=== PATIENT | female | born 1975 | race Caucasian/White ===

== ENCOUNTER 2017-11-15 12:19 | Emergency (ER) | payer OTHER ==
[~2017-11-15] VITALS: Ht 160 cm; Wt 106.0 kg
[2017-11-15 12:20] VITALS: BP 108/75; PULSE 93; RESP 14; TEMP 98.3; O2SAT 98
[2017-11-15] MEDS ORDERED: IBUPROFEN 800 MG TAB PO ONE (13:45)
--- NOTE | 2017-11-15 13:50 | PD ---
HPI Chief Complaint: Injury Time Seen by Provider: 13:19 Travel History International Travel<30 days: No Contact w/Intl Traveler<30days: No Traveled to known affect area: No History of Present Illness HPI 42-year-old female presents to the emergency Department with complaint of right ankle pain and left knee pain after rolling her ankle on an uneven surface today. Denies hitting her head or loss of consciousness. Denies neck pain or back pain. Denies chest pain, shortness of breath, abdominal pain, vomiting. Has not taken any medication or tried any treatments to relieve his symptoms. Ankle pain is right lateral. Knee pain is left anterior. Rates pain 10/10. Aggravated with movement and palpation. No known relieving factors. Has not ambulated since after the fall. Reports feeling some numbness in her right foot , but denies loss of sensation. Primary care provider is Dr. Sotelo. No known allergies. Denies significant past medical history. Has no other medical complaints. No other modifying factors or associated signs and symptoms. PFSH Past Medical History Medical History: Denies Significant Hx ?: Unknown LMP: 10/19/17 Past Surgical History Cholecystectomy: Yes Social History Alcohol Use: Yes (OCC) Tobacco Use: No Substance Use: No Allergies-Medications (Allergen,Severity, Reaction): Coded Allergies: No Known Allergies (Unverified , 11/15/17) Reported Meds & Prescriptions Reported Meds & Active Scripts Active Ibuprofen 800 Mg Tab 800 Mg PO Q6HR PRN [place] (Hydrocodone-Acetaminophen) 5 Mg-325 Mg Tab 1 Tab PO Q4H PRN Review of Systems Except as stated in HPI: all other systems reviewed are Neg Physical Exam Narrative GENERAL: Well-nourished, well-developed female patient, in no acute distress SKIN: Warm and dry. HEAD: Atraumatic. Normocephalic. EYES: Pupils equal and round. No scleral icterus. No injection or drainage. ENT: Mucosa pink and moist. Airway patent. NECK: Trachea midline. CARDIOVASCULAR: Regular rate. RESPIRATORY: No accessory muscle use. GASTROINTESTINAL: Rounded. MUSCULOSKELETAL: Right ankle with point tenderness to the lateral zone with palpation; edema noted to the lateral aspect; no obvious deformity; without erythema, ecchymosis. Right Lower extremity is supple and nontense with 2+ pedal pulse and sensory intact. Left knee with tenderness on palpation to the patellar aspect; without erythema, edema, ecchymosis; full range of motion with flexion and 90 and joint stable with negative drawer test. Left lower Ixodes supple and non-tense 2+ pedal pulse and sensory intact without erythema or edema. No obvious deformities. No clubbing. No cyanosis. No edema. NEUROLOGICAL: Awake and alert. Oriented 3. No obvious cranial nerve deficits. Motor grossly within normal limits. Normal speech. PSYCHIATRIC: Appropriate mood and affect; insight and judgment normal. Data Data Last Documented VS Vital Signs Date Time Temp Pulse Resp B/P (MAP) Pulse Ox O2 Delivery O2 Flow Rate FiO2 11/15/17 12:20 98.3 93 14 108/75 (86) 98 Orders Orders Ankle, Complete (Ama8mpf) (11/15/17 13:31) Knee, Complete (4vws) (11/15/17 13:31) Ibuprofen (Motrin) (11/15/17 13:45) Ice/Cold Pack (11/15/17 13:31) Crutches (11/15/17 13:31) Splint Or Brace Apply/Monitor (11/15/17 15:59) Acetamin-Hydrocod 325-5 Mg ([place] 5-325 (11/15/17 16:15) Ed Discharge Order (11/15/17 16:06) MDM Medical Decision Making Medical Screen Exam Complete: Yes Emergency Medical Condition: Yes Medical Record Reviewed: Yes Differential Diagnosis Ankle sprain, ankle fracture, patellar fracture, knee contusion Narrative Course 42-year-old female with left knee injury and right ankle injury after mechanical fall. Denies hitting her head or loss of consciousness. Denies neck pain or back pain. Right ankle x-ray, left knee x-ray, ibuprofen ordered. 1600: Right ankle x-ray and left knee x-ray concluded: Knee X-Ray 11/15/171330 Signed Impressions: Service Date/Time: Wednesday, November 15, 2017 13:45 - CONCLUSION: Unremarkable examination of the left knee. Branden Mathew MD Ankle X-Ray 11/15/171330 Signed Impressions: Service Date/Time: Wednesday, November 15, 2017 13:51 - CONCLUSION: Fracture tip of the lateral malleolus. Branden Mathew MD Patient provided a copy of the ankle x-ray report. Wolf splint and crutches ordered for support. Lortab ordered. [place], ibuprofen prescribed for home. Instructed patient to follow up with podiatry or orthopedics. Instructed patient to follow up with primary care provider. Patient verbalizes understanding and agreement with treatment plan. Patient is medically cleared and stable for discharge. Discussed reasons to return to the emergency department. Patient agrees with treatment plan. The patients vital signs are stable and the patient is stable for outpatient follow-up and treatment. Patient discharged home, stable and in no acute distress. Diagnosis Primary Impression: Ankle fracture, right Qualified Codes: S82.891A - Other fracture of right lower leg, initial encounter for closed fracture Additional Impression: Contusion of left knee Qualified Codes: S80.02XA - Contusion of left knee, initial encounter Referrals: Supervisor Cd Area Primary Care Physician Patient Instructions: Ankle Fracture (ED), Contusion in Adults (ED), Crutch Instructions (ED), General Instructions Departure Forms: Tests/Procedures, Work Release Enter return to work date: Nov 23, 2017 Additional Instructions: Tylenol or ibuprofen as directed and as needed for pain and inflammation Rest, ice, compress, and elevate extremity to decrease pain and inflammation Splint for support; do not remove splint until cleared Crutches for support Avoid aggravating activity; increase activity as tolerated Follow-up with primary care provider 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
--- NOTE | 2017-11-15 15:36 | RADRPT ---
EXAM DATE/TIME: 11/15/2017 13:45 [facility] COMPARISON: No previous studies available for comparison. INDICATIONS : Left knee pain MEDICAL HISTORY : None. SURGICAL HISTORY : None. ENCOUNTER: Initial ACUITY: 1 day PAIN SCORE: 9/10 LOCATION: Left knee FINDINGS: Four view examination of the left knee demonstrates no evidence of fracture or dislocation. Bony min eralization is normal. The articular surfaces are intact. The suprapatellar soft tissues have a nor mal configuration. CONCLUSION: Unremarkable examination of the left knee. Branden Mathew MD on November 15, 2017 at 15:33 Board Certified Radiologist. This report was verified electronically.
--- NOTE | 2017-11-15 15:37 | RADRPT ---
EXAM DATE/TIME: 11/15/2017 13:51 [facility] COMPARISON: No previous studies available for comparison. INDICATIONS : Right Ankle Pain MEDICAL HISTORY : None. SURGICAL HISTORY : None. ENCOUNTER: Initial ACUITY: 1 day PAIN SCORE: 9/10 LOCATION: Right ankle FINDINGS: There is soft tissue swelling laterally. Minimal distracted fracture tip of the lateral malleolus is appreciated. No evidence dislocation. Small calcaneal spurs at the insertion of plantar aponeurosis a nd Achilles tendon. CONCLUSION: Fracture tip of the lateral malleolus. Branden Mathew MD on November 15, 2017 at 15:33 Board Certified Radiologist. This report was verified electronically.
[2017-11-15] MEDS ORDERED: IBUP1TAB7 PO (16:04)
[2017-11-15] MEDS ORDERED: NORC5TAB PO (16:04)
[2017-11-15] MEDS ORDERED: ACETAMINOPHEN/HYDROcodone 325 MG/5 MG TAB PO ONE (16:15)
== END 2017-11-15 17:25 | disposition home or self-care (01) ==
LOC: NEPD 12:19
DX: S82.61XA Displaced fracture of lateral malleolus of right fibula, initial encounter for closed fracture (principal); S80.02XA Contusion of left knee, initial encounter; W19.XXXA Unspecified fall, initial encounter
CPT/HCPCS: 29515; 73564; 73610; 99283; E0113; L2114